=== PATIENT | female | born 1940 | race Two or more races ===

== ENCOUNTER 2018-05-28 13:58 | Emergency (ER) | payer OTHER ==
[~2018-05-28] VITALS: Ht 157.5 cm; Wt 68.0 kg
[2018-05-28 14:15] VITALS: BP 127/64
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
[2018-05-28] MEDS ORDERED: traMADol 50mg tab ORAL ONE (14:30)
[2018-05-28] MEDS ORDERED: TRAMADOL HCL50 MG ORAL (14:53)
[2018-05-28 15:06] VITALS: BP 124/67
--- NOTE | 2018-05-28 15:12 | Diagnostic Imaging Report ---
EXAM: XR Lumbar Spine, 2 or 3 Views CLINICAL HISTORY: FALL TECHNIQUE: Frontal and lateral views of the lumbar spine. COMPARISON: No relevant prior studies available. FINDINGS: Vertebrae: Unremarkable. 5 [id number] lumbar vertebral segments are noted. Lumbar vertebral body heights are preserved. No visible fracture. Normal alignment. Disc spaces: Mild multilevel degenerative disc space loss and endplate osteophytes throughout the lumbar spine. Soft tissues: Unremarkable. IMPRESSION: 1. No evidence of acute lumbar spine fracture or malalignment. 2. Mild multilevel degenerative changes throughout the lumbar spine.
--- NOTE | 2018-05-28 15:14 | Diagnostic Imaging Report ---
EXAM: XR Left Hip With Pelvis When Performed, 2 or 3 Views CLINICAL HISTORY: FALL TECHNIQUE: Two or three views of the left hip, with pelvis when performed. COMPARISON: No relevant prior studies available. FINDINGS: Bones/joints: Unremarkable. No visible displaced fracture. No dislocation. No osseous erosions. Visualized joint spaces appear unremarkable. Soft tissues: Unremarkable. IMPRESSION: No fracture or dislocation identified.
== END 2018-05-28 15:56 | disposition home or self-care (01) ==
LOC: EDBD 13:58 → EMR 14:20
DX: M54.5 Low back pain (principal); M25.552 Pain in left hip; E11.9 Type 2 diabetes mellitus without complications; E78.5 Hyperlipidemia, unspecified; V79.88XA Bus occupant (driver) (passenger) injured in other specified transport accidents, initial encounter; Y92.89 Other specified places as the place of occurrence of the external cause; Y99.8 Other external cause status
CPT/HCPCS: 72020; 73502; 99284

== ENCOUNTER 2018-05-30 09:30 | Emergency (ER) | payer OTHER ==
[~2018-05-30] VITALS: Ht 154.9 cm; Wt 68.0 kg
[~2018-05-30 09:30] MED LIST: TRAMADOL HCL50 MG ORAL
[2018-05-30 09:46] VITALS: BP 140/70
[2018-05-30] MEDS ORDERED: Acetaminophen 500mg (ES) tab PO ONE (10:00)
[2018-05-30] MEDS ORDERED: Methocarbamol 750mg tab ORAL ONE (10:15)
--- NOTE | 2018-05-30 11:15 | Diagnostic Imaging Report ---
Indication: Back pain Technique: Continuous helical transaxial imaging of the thoracic spine was obtained from the lung bases to the pubic symphysis. No IV contrast was administered. Coronal 2-D reformats were also obtained. Study obtained in a Siemens sensation [address] Total Dose length Product (DLP): 1183.[address] Dose Index Volume (CTDIvol): 30.52 mGy Comparison: None Findings: The bones are osteopenic. There is no malalignment or acute fracture identified. No paraspinous or paravertebral fluid collections or hematoma identified. Mild endplate osteophytes noted. Some narrowing of intervertebral discs and vacuum phenomena noted. IMPRESSION: No acute injury Mild degenerative changes of the thoracic spine. The CT scanner at [facility] is accredited by the [employer] and the scans are performed using dose optimization techniques as appropriate to a performed exam including Automatic Exposure control.
--- NOTE | 2018-05-30 11:19 | Diagnostic Imaging Report ---
Indication: Back pain Technique: Continuous helical transaxial imaging of the lumbar spine was obtained from the lung bases to the pubic symphysis. No IV contrast was administered. Coronal 2-D reformats were also obtained. Study obtained in a Siemens sensation [address] Total Dose length Product (DLP): 379.[address] Dose Index Volume (CTDIvol): 12.92 mGy Comparison: None Findings: There is no evidence of an acute fracture or malalignment. Height and configuration of the vertebral bodies and intervertebral discs are within normal limits. For vacuum discs noted at L5-S1. Minimal endplate spur formation noted. Mild hypertrophy of the lower lumbar facets noted. There is no soft tissue swelling. Aorta is mildly calcified. Impression: Negative for acute injury. Mild degenerative changes The CT scanner at [facility] is accredited by the [employer] and the scans are performed using dose optimization techniques as appropriate to a performed exam including Automatic Exposure control.
--- NOTE | 2018-05-30 11:22 | Diagnostic Imaging Report ---
Indication: Abdominal pain Technique: Continuous helical transaxial imaging of the abdomen and pelvis was obtained from the lung bases to the pubic symphysis. No intravenous contrast was administered. Coronal 2-D reformats were also obtained. Automatic Exposure Control was utilized. Total Dose length Product (DLP): 809.[address] Dose Index Volume (CTDIvol): 15.47 mGy Comparison: none Findings: Some reticular densities are done at the lung bases especially on the left side. This may represent a mild focus of peripheral scarring versus atelectasis. The gallbladder is contracted. There is a radiopaque density in association with the gallbladder which may be a small stone. No nephrolithiasis is identified. Diverticulosis of the colon noted. No definite diverticulitis appreciated. Appendix is not seen. There are no secondary signs of acute appendicitis. There is no free fluid or free air or evidence of bowel obstruction. Mild aortoiliac calcifications are present. Uterus noted. Urinary bladder is mildly distended. IMPRESSION: No acute findings appreciated. Contracted gallbladder with the suspect a small stone. Diverticulosis of the colon. No definite evidence of acute diverticulitis. Atherosclerotic disease Mild basilar fibrosis and/or atelectasis The CT scanner at [facility] is accredited by the [employer] and the scans are performed using dose optimization techniques as appropriate to a performed exam including Automatic Exposure control.
--- NOTE | 2018-05-30 11:23 | Diagnostic Imaging Report ---
Indication: Right shoulder pain Findings: 3 views of the right shoulder were obtained. No acute fractures, malalignment, erosions or periostitis are identified. Bones are osteopenic. Soft tissues are unremarkable. Impression: Negative for acute injury
[2018-05-30] MEDS ORDERED: ROBAXIN-750750 MG PO (11:55)
[2018-05-30] MEDS ORDERED: LIDODERM700 M1 TOPIC (11:55)
[2018-05-30] MEDS ORDERED: TYLENOL EXTRA500 MG ORAL (11:55)
[2018-05-30 12:06] VITALS: BP 130/76
--- NOTE | 2018-05-30 14:31 | Emergency Room Report ---
History of Present Illness General Chief Complaint: Back Injury Source: Patient Present Illness HPI 78-year-old female presents ED for evaluation. Presenting with hip and back pain. States she was here 2 days ago status post fall. Had x-rays which were negative. Subsequent discharge but states pain is persisting. States the pain medications are not helping. Pain is throbbing, 8 out of 10, radiating down her back. Also complaining of right shoulder pain. No other aggravating relieving factors. Denies any other associated symptoms Allergies: Coded Allergies: No Known Allergies (Unverified , 05/28/18) Patient History Past Medical History: DM Past Surgical History: none Pertinent Family History: none Social History: Denies: smoking, alcohol use, drug use Now: No Immunizations: UTD Reviewed Nursing Documentation: PMH: Agreed; PSxH: Agreed Nursing Documentation-PMH Past Medical History: No History, Except For Hx Cardiac Problems: Yes - high cholesterol Hx Diabetes: Yes Review of Systems All Other Systems: negative except mentioned in HPI Physical Exam Vital Signs Date Time Temp Pulse Resp B/P (MAP) Pulse Ox O2 Delivery O2 Flow Rate FiO2 05/30/18 09:34 97.5 78 22 144/69 100 Room Air Sp02 EP Interpretation: reviewed, normal General Appearance: no apparent distress, alert, GCS 15, non-toxic Head: normocephalic Eyes: bilateral eye normal inspection, bilateral eye PERRL ENT: normal ENT inspection Neck: normal inspection Respiratory: normal inspection Cardiovascular #1: normal inspection Gastrointestinal: normal inspection Rectal: deferred Genitourinary: no CVA tenderness, vertebral tenderness Musculoskeletal: gait/station normal, normal range of motion, tender - paraspinal thoracic/lumbar tenderness Neurologic: alert, oriented x3, responsive, motor strength/tone normal, sensory intact, speech normal Psychiatric: normal inspection Skin: normal inspection Lymphatic: normal inspection Medical Decision Making Diagnostic Impression: Primary Impression: Injury of back Qualified Codes: S39.92XD - Unspecified injury of lower back, subsequent encounter ER Course Hospital Course 78 yo F presents to ED c/o back pain and shoulder pain s/p fall Differential diagnoses include: Fracture, dislocation, sprain, contusion Clinical course Patient placed on stretcher. After initial history and physical, I ordered pain medications and xrays R shoulder, CT of T spine L spine and Pelvis Xrays read shows no acute fracture/dislocation. CT of T-spine and L-spine and pelvis are unremarkable for fracture Discussed findings with patient. On reassessment pain is improved. Reassurance given. Safe for discharge and close outpatient follow-up Diagnosis - injury of back Stable and discharged to home with prescription for Tylenol, Robaxin, Lidoderm. weight bear as tolerated. Followup with PMD. Return to ED if symptoms recur or worsen Other X-Ray Diagnostic Results Other X-Ray Diagnostic Results : X-Ray ordered: R shoulder # of Views/Limited Vs Complete: 3 View Indication: Pain EP Interpretation: Yes Interpretation: no dislocation, no soft tissue swelling, no fractures Impression: No acute disease Electronically Signed by: Electronically signed by Milan Pereira MD CT/MRI/US Diagnostic Results CT/MRI/US Diagnostic Results #1: Imaging Test Ordered: CT T spine Impression no acute process CT/MRI/US Diagnostic Results #2: Imaging Test Ordered: CT L spine Impression no acute process CT/MRI/US Diagnostic Results #3: Imaging Test Ordered: CT Pelvis Impression no acute process Last Vital Signs Date Time Temp Pulse Resp B/P (MAP) Pulse Ox O2 Delivery O2 Flow Rate FiO2 05/30/18 12:06 97.9 71 16 130/76 98 Room Air Status: improved Disposition: HOME, SELF-CARE Condition: Stable Scripts Lidocaine (Lidoderm) 1 Each Adh..patch 1 PATCH TOPIC DAILY, #7 PATCH 0 Refills Patch(es) may remain in place for up to 12 hours in any 24-hour period. Prov: Milan Pereira MD 05/30/18 Methocarbamol* (ROBAXIN-750*) 750 Mg Tablet 750 MG PO TID, #21 TAB 0 Refills Prov: Milan Pereira MD 05/30/18 Acetaminophen* (TYLENOL EXTRA STRENGTH*) 500 Mg Tablet 500 MG ORAL Q8H PRN for Prn Headache/Temp > 101, #30 TAB 0 Refills Prov: Milan Pereira MD 05/30/18 Referrals: NON PHYSICIAN (PCP) Patient Instructions: Back Pain, Adult Milan Pereira MD May 30, 2018 14:31
== END 2018-05-30 12:09 | disposition home or self-care (01) ==
LOC: EMR 10:00
DX: S39.92XA Unspecified injury of lower back, initial encounter (principal); W19.XXXA Unspecified fall, initial encounter; M25.511 Pain in right shoulder; E11.9 Type 2 diabetes mellitus without complications; E78.00 Pure hypercholesterolemia, unspecified
CPT/HCPCS: 72128; 72131; 74176; 99284